=== PATIENT | male | born 1970 | race Two or more races ===

== ENCOUNTER → 2017-01-31 | Outpatient (CLI) | payer BC ==
[~2017-01-31] MED LIST: IOHEXOL 350 MG/ML 100ML IJ ONE
[2017-01-31 08:50] VITALS: BP 105/63
== END | disposition home or self-care (01) ==
LOC: Rad HDHVI 08:02
PROVIDERS: ATTEND Internal Medicine Cardiovascular Disease
DX: E11.9 Type 2 diabetes mellitus without complications (principal); E03.9 Hypothyroidism, unspecified; E55.9 Vitamin D deficiency, unspecified; R53.81 Other malaise
CPT/HCPCS: 36415; 82306; 82565; 83036; 84403; 84436; 84443; 93306; 96374; G0463; Q9967

== ENCOUNTER → 2017-03-05 | Outpatient (CLI) | payer BC ==
[~2017-03-05] VITALS: Ht 175.3 cm; Wt 82.6 kg
== END | disposition home or self-care (01) ==
LOC: Rad HDHVI 13:20
PROVIDERS: ATTEND Internal Medicine Cardiovascular Disease
DX: R07.89 Other chest pain (principal); R00.2 Palpitations
CPT/HCPCS: 78452; 93017; 96374; A9500

== ENCOUNTER → 2018-08-03 | Outpatient (CLI) | payer BC ==
[~2018-08-03] MED LIST changes: -IOHEXOL 350 MG/ML 100ML IJ ONE; +OMEGCAP2 OR
[2018-08-03 13:30] VITALS: BP 110/59
--- NOTE | 2018-08-03 13:30 | NUR ---
CHF /PT ARRIVED THE [facility] FOR PREOP EKG, CHEST XRAY AND LABS. PT HAS HISTORY OF CHEST PAIN X 2 YEARS. SCHEDULED FOR LEFT HEART CATH 08/06/18
[2018-08-03 14:00] VITALS: BP 109/60
--- NOTE | 2018-08-03 14:45 | NUR ---
Pre-Op Discharge Summary: Pre-op orders received and carried out per MD of EKG, LABS and chest xrays. Patient given a copy of EKG with instructions to follow up with lab and xray results requested by MD. All results to be faxed on follow up.
[2018-08-03 16:24] LABS: BUN/Creatinine Ratio 12.8; Calcium 8.9 mg/dL (8.5-10.1); Potassium 3.8 mmol/L (3.5-5.1)
[2018-08-03 17:08] LABS: Basophils # (auto) 0 uL; Basophils % (auto) 0.6 % (0.0-2.0); Eosinophils # (auto) 0.1 uL; Hematocrit 46.4 % (41.0-53.0); Hemoglobin 15.6 g/dL (13.5-17.5); Lymphocytes # (auto) 1.7 uL; Lymphocytes % (auto) 26.4 % (10.0-50.0); Mean Corpuscular Hemoglobin 30.3 pg (28.0-32.0); Mean Corpuscular Hgb Conc. 33.6 g/dL (32.0-36.0); Mean Corpuscular Volume 90.4 fL (80.0-100.0); Monocytes # (auto) 0.4 uL; Monocytes % (auto) 6.3 % (0.0-12.0); Neutrophils # (auto) 4.1 uL; Neutrophils % (auto) 65.7 % (37.0-80.0); Nucleated Red Blood Cells % 0.1 %; Platelet Count (auto) 238 10^3/uL (140-450); Red Blood Cells 5.13 10^6/uL (4.5-5.90); White Blood Cell 6.3 10^3/uL (4.4-10.8)
[2018-08-03 17:09] LABS: INR 0.99 (0.9-1.15); Partial Thromboplastin Time 26.1 sec (23.64-32.05); Prothrombin Time 10.7 sec (9.06-12.60)
== END | disposition home or self-care (01) ==
LOC: CHF HDHVI 13:18
PROVIDERS: ATTEND Internal Medicine Cardiovascular Disease
DX: Z01.812 Encounter for preprocedural laboratory examination (principal); D64.9 Anemia, unspecified; R79.1 Abnormal coagulation profile; I10 Essential (primary) hypertension
CPT/HCPCS: 36415; 80048; 85025; 85610; 85730; 93005; G0463

== ENCOUNTER 2018-08-06 09:00 | Day surgery (SDC) | payer BC ==
[~2018-08-06] VITALS: Ht 175.3 cm; Wt 83.9 kg
[2018-08-06] MEDS ORDERED: fentaNYL CITRATE 100 MCG/2 ML VL ONE (10:23)
[2018-08-06] MEDS ORDERED: ANGIOMAX 250 MG VIAL IV ONE (10:23)
[2018-08-06] MEDS ORDERED: SODIUM CHL 0.9% 0 ML ONE (10:23)
[2018-08-06] MEDS ORDERED: METOCLOPRAMIDE HCL 5MG/ml INJ 2ml VIAL ONE (10:23)
[2018-08-06] MEDS ORDERED: MIDAZOLAM HCL 1MG/1ML-2 ML VIAL ONE (10:23)
[2018-08-06] MEDS ORDERED: IOHEXOL 350 MG/ML 100ML IJ ONE (10:24)
[2018-08-06] MEDS ORDERED: LIDOCAINE 2%HCL (LOCAL ANESTH.) INJ 20ML MDV ONE (10:24)
[2018-08-06] MEDS ORDERED: HYDROcodone-ACET 5/325MG TAB PO PRN (11:15)
[2018-08-06] MEDS ORDERED: ONDANSETRON HCL 4 MG/2 ML VIAL IV PRN (11:15)
[2018-08-06] MEDS ORDERED: ACETAMINOPHEN 500 MG TAB PO PRN (11:15)
== END 2018-08-06 13:45 | disposition home or self-care (01) ==
LOC: CATH 09:00
PROVIDERS: ATTEND Internal Medicine Cardiovascular Disease
DX: I25.10 Atherosclerotic heart disease of native coronary artery without angina pectoris (principal); E78.00 Pure hypercholesterolemia, unspecified; Z91.041 Radiographic dye allergy status; Z79.899 Other long term (current) drug therapy; Z98.890 Other specified postprocedural states
CPT/HCPCS: 93458; C1760; C1894; J1644; J2250; J2765; J3010; J7030; Q9967; 99152

== ENCOUNTER → 2019-08-13 | Outpatient (CLI) | payer BC ==
[2019-08-13 12:04] LABS: Urine Blood 1+ /uL (Negative); Urine Specific Gravity 1.019 (1.001-1.035)
[2019-08-13 12:16] LABS: Basophils # (auto) 0.1 10 ^3/uL (0-0.2); Basophils % (auto) 1.4 % (0.0-2.0); Eosinophils # (auto) 0.1 10 ^3/uL (0-0.8); Hematocrit 48.4 % (41.0-53.0); Hemoglobin 16.1 g/dL (13.5-17.5); Lymphocytes # (auto) 1.6 10 ^3/uL (0.4-5.4); Lymphocytes % (auto) 39.5 % (10.0-50.0); Mean Corpuscular Hgb Conc. 33.3 g/dL (32.0-36.0); Mean Corpuscular Volume 90.1 fL (80.0-100.0); Monocytes # (auto) 0.3 10 ^3/uL (0-1.3); Monocytes % (auto) 7.7 % (0.0-12.0); Neutrophils % (auto) 49.4 % (37.0-80.0); Nucleated Red Blood Cells % 0.3 %; Platelet Count (auto) 257 10^3/uL (140-450); Red Blood Cells 5.37 10^6/uL (4.5-5.90)
[2019-08-13 12:17] LABS: Free T4 (Free Thyroxine) 1.04 ng/dL (0.89-1.76)
[2019-08-13 12:18] LABS: Prostate Specific Antigen 0.34 ng/mL (0.0-4.0)
[2019-08-13 12:20] LABS: Albumin 3.6 g/dL (3.4-5.0); Potassium 4.1 mmol/L (3.5-5.1)
[2019-08-13 12:27] LABS: BUN/Creatinine Ratio 13.6; Bilirubin, Total 0.7 mg/dL (0.2-1.0); Calcium 8.7 mg/dL (8.5-10.1); Total Protein 7.1 g/dL (6.4-8.2)
== END | disposition home or self-care (01) ==
LOC: LAB 08:50
PROVIDERS: ATTEND Internal Medicine Cardiovascular Disease
DX: Z00.00 Encounter for general adult medical examination without abnormal findings (principal); E03.9 Hypothyroidism, unspecified; K90.9 Intestinal malabsorption, unspecified; C61 Malignant neoplasm of prostate; E29.1 Testicular hypofunction; N39.0 Urinary tract infection, site not specified; D51.9 Vitamin B12 deficiency anemia, unspecified; Z79.899 Other long term (current) drug therapy
CPT/HCPCS: 36415; 80053; 80061; 81003; 82306; 82607; 83036; 84153; 84403; 84439; 84443; 85025

== ENCOUNTER → 2019-10-18 | Outpatient (CLI) | payer BC ==
[~2019-10-18] MED LIST changes: +IOHEXOL 350 MG/ML 100ML IJ ONE
[2019-10-18 12:46] VITALS: BP 114/70
--- NOTE | 2019-10-18 12:46 | NUR ---
CLINIC PT ARRIVED TO THE CHF CLINIC FOR CT ABD/PELVIC REGARDING ABD PAIN. A/OX4, AMBULATORY. BREATHING IS EVEN AND UNLABORED.
--- NOTE | 2019-10-18 12:54 | NUR ---
IV insertion IV access obtained, via clean sterile technique by inserting 22 gauge catheter at LAC after 1 attempt(s). IV secured properly. No trauma to site. Patient tolerated procedure well. NOTE INSERTED BY MARJORIE BHATT
--- NOTE | 2019-10-18 12:56 | NUR ---
PT TO CT WITH [employer]. A/OX4 AMBULATORY.
--- NOTE | 2019-10-18 13:04 | NUR ---
PT BACK FROM CT. A/O X4
--- NOTE | 2019-10-18 13:07 | NUR ---
IV removal IV DC'd with sterile technique, catheter fully intact. Pressure dressing applied to site. Patient tolerated procedure well. Discharged with aftercare instructions per MD. NOTE: REMOVED BY MARJORIE BHATT
[2019-10-18 13:09] VITALS: BP 108/65
--- NOTE | 2019-10-18 13:09 | NUR ---
Discharge Instructions See e-MAR for any mediations given with this visit. Patient education given on disease process. Patient verbalized understanding. Previous labs reviewed. Patient discharged in stable condition with after care instructions TO INCREASE FLUIDS FOR THE NEXT 24 HOURS.
== END | disposition home or self-care (01) ==
LOC: Rad HDHVI 12:25
PROVIDERS: ATTEND Internal Medicine Cardiovascular Disease
DX: M16.11 Unilateral primary osteoarthritis, right hip (principal); R10.9 Unspecified abdominal pain
CPT/HCPCS: 74177; G0463; Q9967

== ENCOUNTER → 2023-04-22 | Outpatient (CLI) | payer BC ==
[~2023-04-22] MED LIST changes: -IOHEXOL 350 MG/ML 100ML IJ ONE
== END | disposition home or self-care (01) ==
LOC: Rad HDHVI 16:02
PROVIDERS: ATTEND Internal Medicine Cardiovascular Disease
DX: R00.2 Palpitations (principal); R42 Dizziness and giddiness
CPT/HCPCS: 93306

== ENCOUNTER → 2023-04-30 | Outpatient (CLI) | payer BC ==
[~2023-04-30] VITALS: Ht 175.3 cm; Wt 81.6 kg
== END | disposition home or self-care (01) ==
LOC: Rad HDHVI 08:02
PROVIDERS: ATTEND Internal Medicine Cardiovascular Disease
DX: R07.9 Chest pain, unspecified (principal); E78.00 Pure hypercholesterolemia, unspecified; R42 Dizziness and giddiness
CPT/HCPCS: 78452; 93017; A9500; 96374

== ENCOUNTER → 2024-04-26 | Outpatient (CLI) | payer BC ==
[~2024-04-26] MED LIST changes: +IOHEXOL 350 MG/ML 100ML IJ ONE
[2024-04-26 15:45] VITALS: BP 111/69; PULSE 62; RESP 16; O2SAT 97
[2024-04-26 15:58] VITALS: BP 111/63; PULSE 65; RESP 16; O2SAT 97
--- NOTE | 2024-04-26 16:25 | DVH ---
CT abdomen and pelvis with IV contrast INDICATION: ABD PAIN Comparison: 11/14/2019 TECHNIQUE: Following IV administration of 100 mL of Omnipaque 300 Serial axial images were performed through the abdomen and pelvis and then reformatted in the sagittal and coronal plane. FINDINGS: Lung bases clear. Liver and spleen enhance homogeneously . There is a cyst or cystic lesion in right lobe of the liver plate 15 mm in size Bilateral renal concentration and excretion without mass stone or hydronephrosis Adrenals and pancreas unremarkable Gallbladder and biliary tree without stones or biliary dilatation Bowel nondistended. Appendix normal No free fluid In the pelvis the bladder is intact. There is no free fluid present. Small right inguinal hernia cont aining fat. Left inguinal surgical clips On bone windows no lytic or blastic lesions of bone. IMPRESSION: 1. Small right inguinal hernia containing fat. Present on previous exam. Computed Tomographic Radiation Dosimetry Report: Total CTDI vol = 6 mGy Total DLP = 301 mGy-cm Low dose protocols were performed. All CT scans at this medical facility are performed using dose modulation techniques as appropriate t o a performed exam including the following: Automated exposure control was utilized; adjustment of the MA and/or KvP according to patient size; a nd use of iterative reconstruction technique.
--- NOTE | 2024-04-26 16:30 | DVH ---
EXAM: XY CHEST TWO VIEWS ROUTINE HISTORY: SOB COMPARISON: None TECHNIQUE: Frontal and lateral views of the chest were performed. FINDINGS: No pneumothorax, pulmonary edema, pleural effusions, or consolidative infiltrates. There is mild cent ral peribronchial thickening. The heart is not enlarged. No fractures are identified about the bony thorax. There is mild thoracic degenerative disc disease. There is slight thoracic dextroscoliosis. IMPRESSION: Mild reactive airways disease. The lungs are otherwise clear.
== END | disposition home or self-care (01) ==
LOC: Rad HDHVI 15:30
PROVIDERS: ATTEND Internal Medicine Cardiovascular Disease
DX: J45.909 Unspecified asthma, uncomplicated (principal); J98.09 Other diseases of bronchus, not elsewhere classified; K40.90 Unilateral inguinal hernia, without obstruction or gangrene, not specified as recurrent; K76.89 Other specified diseases of liver; M47.814 Spondylosis without myelopathy or radiculopathy, thoracic region; R06.02 Shortness of breath; R10.9 Unspecified abdominal pain
CPT/HCPCS: 71046; 74177; G0463; Q9967